=== PATIENT | male | born 1970 | race Caucasian/White ===

== ENCOUNTER 2023-01-19 17:55 | Emergency (ER) | payer OTHER, SELFPAY ==
[2023-01-19 18:06] VITALS: BP 145/88; PULSE 72; RESP 18; TEMP 36.5; O2SAT 100
--- NOTE | 2023-01-19 18:42 | ED.URI ---
HPI - URI/Sore Throat General Chief Complaint: Upper Respiratory Infection Stated Complaint: Sore throat,Cough Time Seen by Provider: 01/19/23 18:22 Source: patient Mode of arrival: ambulatory Limitations: no limitations History of Present Illness HPI Narrative: Patient presents today with 5 day history of sore throat that has been worsening since onset with a cough and bilateral ear pain that started yesterday. Denies shortness of breath or difficulty swallowing. He has been taking Advil cold and Sinus with some relief. He took a home COVID-19 test today that was negative. Denies any history of asthma or COPD. He is a nonsmoker. Did have some exposure with large group of people at work prior to onset of symptoms, but no known sick contacts. Related Data Home Medications Medication Instructions Recorded Confirmed rosuvastatin 5 mg tablet 5 mg PO DAILY 01/19/23 01/19/23 Allergies Allergy/AdvReac Type Severity Reaction Status Date / Time No Known Allergies Allergy Mild Verified 01/19/23 18:08 Review of Systems Review of Systems: CONSTITUTIONAL: Denies body aches, fever, chills, or sweats. EYES: Denies visual changes, redness, or discharge. ENT: Denies rhinorrhea, congestion. + sore throat, bilateral ear pain CARDIOVASCULAR: Denies chest pain, palpitations, or edema. RESPIRATORY: Denies dyspnea.+ cough GASTROINTESTINAL: Denies abdominal pain, nausea, vomiting, or diarrhea. GENITOURINARY: Denies dysuria or hematuria. SKIN: Denies rash, itching, or wounds. MUSCULOSKELETAL: Denies back pain, joint pain, or myalgia. NEUROLOGIC: Denies headache, numbness, tingling, or weakness. PSYCH: Denies depression or anxiety. PMFSH Comments At time of signature, I have reviewed and agree with nursing past medical, surgical, social and family history unless otherwise noted. Please see nursing chart for further information. There is no relevant family history pertinent to the presenting complaint Exam Narrative: GENERAL: Well-appearing, well-nourished, and in no acute distress. HEAD: Normocephalic, atraumatic. EYES: EOMI. No redness or drainage. Conjunctivae normal. ENT: Mucous membranes pink and moist. Nares clear. No rhinorrhea. TMs normal bilaterally with small amount of fluid behind the TMs bilaterally. Throat erythematous without edema or exudate. Uvula midline. NECK: Normal AROM. Supple. No lymphadenopathy. CHEST: No respiratory distress. Clear to auscultation. HEART: Regular rate and rhythm. No murmur appreciated. Normal peripheral pulses. EXTREMITIES: Normal range of motion. No edema. SKIN: Warm, dry, no rash. Capillary refill normal. Normal skin turgor. NEURO: No focal deficits. Alert and oriented x3. Gait steady. PSYCH: Normal affect. No signs of depression or anxiety. Course Course Level of Care: Express Care Visit Vital Signs Vital signs: Vital Signs Temperature 97.7 F 01/19/23 18:06 Pulse Rate 72 01/19/23 18:06 Respiratory Rate 18 01/19/23 18:06 Blood Pressure 145/88 H 01/19/23 18:06 Pulse Oximetry 100 01/19/23 18:06 Oxygen Delivery Room Air 01/19/23 18:06 Temperature 97.7 F 01/19/23 18:06 Pulse Rate 72 01/19/23 18:06 Respiratory Rate 18 01/19/23 18:06 Blood Pressure 145/88 H 01/19/23 18:06 Pulse Oximetry 100 01/19/23 18:06 Oxygen Delivery Room Air 01/19/23 18:06 Reviewed. Pt has been instructed to follow up with his PCP regarding his elevated blood pressure today. MDM - URI/Sore Throat MDM Narrative Medical decision making narrative: Rapid strep negative. Symptoms consistent with URI. Anticipatory guidance given. No prescriptions indicated at this time. Differential Diagnosis Differential diagnosis: Likely upper respiratory infection, otitis media, viral infection, bronchitis, pharyngitis and other (Strep throat) Lab Data Attestation: I reviewed the patient's lab results. Labs: Strep Screen Presumptive Negative
== END 2023-01-19 18:47 | disposition home or self-care (01) ==
PROVIDERS: Emergency Provider Nurse Practitioner; PCP Family Medicine
DX: J06.9 Acute upper respiratory infection, unspecified (principal); E78.00 Pure hypercholesterolemia, unspecified
CPT/HCPCS: 87081; 87880; 99213; G0463

== ENCOUNTER 2024-01-09 08:43 | Outpatient (CLI) | payer OTHER, SELFPAY ==
--- NOTE | 2024-01-16 13:06 | WPDHOMESLEEP ---
Sleep Study - Home Unattended Date of Study: 01/09/24 Ordering Provider: James Diaz DO Interpreting Provider: Colette Charlton MD Home Sleep Study Type: Watch PAT Height: 1.75 m Weight: 83.915 kg Body Mass Index: 27.3 Neck Circumference (inches): 15 [place]: 5 Reason for Sleep Study Atrial fibrillation, snoring, hypersomnia at times Sleep History J Carlos Clancy is a 53-year-old man with atrial fibrillation for the last year, dyslipidemia, gastroesophageal reflux symptoms and seasonal allergies. He frequently snores at night and frequently wakes at night with heartburn, belching or coughing.? He rarely stops breathing at night. ?He constantly has trouble sleeping when he has a cold. He occasionally wakes up gasping for breath during the night. He occasionally has breathing problems at night. He never sweats excessively at night. He occasionally notices his heart pounding or beating irregularly during the night. He rarely falls asleep during the day. He never falls asleep involuntarily, never falls asleep while driving. He never experiences loss of muscle tone with strong emotion. He never has daytime difficulty at work due to excessive sleepiness, works as a transportation project manager. He never feels paralyzed on waking or falling asleep. He occasionally experiences vivid dreams upon waking or falling asleep. He never feels afraid of going to sleep. He occasionally has nightmares. He occasionally recalls his dreams. He frequently has thoughts racing through his mind. He never feels sad or depressed. He rarely feels anxiety. He never notices parts of his body jerk. He never kicks during the night. He never feels crawling or aching feelings in his legs. He never feels leg pain at night. He never has morning jaw pain, occasional grinds his teeth at night. He rarely feels bothered by pain during the day, rarely awakened by pain during the night. He frequently wakes up feeling stiff in the morning, and he rarely wakes feeling sore or achy. He frequently awakens with pain in his neck, spine, or joints. He is drowsy for 1 hour after waking. He does not take naps. A short nap lasting 10-15 minutes is not refreshing. Habits:??Tobacco: former smoker Caffeine: 1 cup of caffeine per day. Alcohol: none Recreational substances: none [facility] Past Medical History Medical History (Updated 01/16/24 @ 16:03 by Colette Charlton MD) Atrial fibrillation Benign prostatic hyperplasia GERD (gastroesophageal reflux disease) History of MRSA infection Hyperlipidemia Family History Family History Father Heart disease S/P CABG Mother Heart disease Atrial fibrillation Grandparent Heart disease Cancer of kidney Social History Social History Smoking status: Former smoker Alcohol intake: never Substance use: never Substance use type: does not use Do You Feel Safe in your Home?: Yes Lack of Transportation: No Lack of Food: Never True Current Housing: I Have Housing Concerned About Future Housing: No Difficulty Paying Gas/Electric Bills: No Difficulty Paying for Meds: No Currently Unemployed: No Education: High School Diploma/GED Difficulty w/ Childcare or Family Care: No Living arrangements: with family Occupation/Education: occupation Gender identity (if verbalized by the patient): Male Sexual Orientation (if Verbalized by the Patient): Straight or Heterosexual Medications Home Medications Medication Instructions Recorded Confirmed Type rosuvastatin 5 mg tablet 5 mg PO DAILY 01/19/23 12/17/23 History fenofibrate 160 mg tablet 160 mg PO DAILY #90 tabs 02/13/23 12/17/23 Rx aspirin 81 mg tablet,delayed 81 mg PO DAILY 03/19/23 12/17/23 History release (Adult Aspirin Regimen) Sleep Procedure The sleep study was completed using WatchPAT a technically adequate liliana
[2024-01-16 16:05] VITALS: BMI 27.3
== END 2024-01-10 09:53 | disposition home or self-care (01) ==
LOC: ANHCSM 08:45
PROVIDERS: PCP Family Medicine; Visit Provider Internal Medicine Cardiovascular Disease
DX: G47.10 Hypersomnia, unspecified (principal); R06.83 Snoring
CPT/HCPCS: 95800